=== PATIENT | male | born 1945 | race Caucasian/White ===

== ENCOUNTER 2022-07-05 19:22 | Outpatient (CLI) | payer MEDICARE, OTHER | END 2022-07-06 07:27 | disposition home or self-care (01) | LOC: SLEEP 19:22 | PROVIDERS: ATTEND Otolaryngology Otolaryngology/Facial Plastic Surgery | DX: G47.33 Obstructive sleep apnea (adult) (pediatric) (principal); G47.10 Hypersomnia, unspecified; I51.9 Heart disease, unspecified | CPT/HCPCS: 95811 ==